=== PATIENT | male | born 1975 | race Caucasian/White ===

== ENCOUNTER 2023-06-06 09:44 | Emergency (ER) | payer BC ==
[~2023-06-06] VITALS: Ht 172.7 cm; Wt 75.0 kg
[2023-06-06 09:46] VITALS: O2SAT 100
[2023-06-06 11:56] LABS: BASOPHILS % 0.3 % (0.0-2.0); HEMATOCRIT. 44.3 % (42.0-52.0); LYMPHOCYTES % 18.2 % (20.0-50.0); MEAN CORPUSCULAR HEMOGLOBIN 31.1 pg (28.0-32.0); MEAN CORPUSCULAR HGB CONC 33.8 g/dL (31.0-37.0); MEAN CORPUSCULAR VOLUME 92.2 fL (80.0-94.0); MEAN PLATELET VOLUME 7.7 fl (7.4-10.4); MONOCYTES % 4.8 % (2.0-8.0); NEUTROPHILS % 76.7 % (40.0-76.0); PLATELET 303 x1000/uL (130-400); RED BLOOD CELL COUNT 4.81 mill/uL (4.7-6.1); RED CELL DISTRIBUTION WIDTH 13.1 % (11.6-14.6); WHITE BLOOD COUNT 6.6 x1000/uL (4.5-11.0)
[2023-06-06 12:13] LABS: ALANINE AMINOTRANSFERASE 40 IU/L (10-49); ALBUMIN 4.2 g/dL (3.2-4.8); ASPARTATE AMINOTRANSFERASE 55 IU/L (<34); BILIRUBIN TOTAL 0.8 mg/dL (0.1-1.0); CALCIUM 9.2 mg/dL (8.7-10.4); CARBON DIOXIDE 28 mEq/L (21-32); CHLORIDE 108 mEq/L (98-107); CREATININE 0.7 mg/dL (0.6-1.3); GLUCOSE 106 mg/dL (70-105); POTASSIUM 4.2 mEq/L (3.5-5.1); PROTEIN TOTAL 6.8 g/dL (6.0-8.3); SODIUM 141 mEq/L (136-145); UREA NITROGEN BLOOD 11 mg/dL (9-23)
[2023-06-06 14:09] VITALS: BP 120/66; PULSE 84; RESP 16; TEMP 98.2
== END 2023-06-06 15:48 | disposition home or self-care (01) ==
LOC: ER 09:44
DX: E11.649 Type 2 diabetes mellitus with hypoglycemia without coma (principal)
CPT/HCPCS: 36415; 80053; 82962; 85025; 99283